=== PATIENT | female | born 1965 | race Caucasian/White ===

== ENCOUNTER 2025-03-18 06:37 | Observation (INO) | payer BC ==
[2025-03-18] VITALS (19 sets, daily range): BP systolic 124–195; BP diastolic 66–102
[~2025-03-18] VITALS: Ht 182.9 cm; Wt 120.5 kg
[2025-03-18] MEDS ORDERED: Ondansetron HCl 2 MG / ML 2ML Vial IV ONE (07:10)
[2025-03-18] MEDS ORDERED: Pantoprazole Sodium 40 MG Injection IV ONE (07:10)
[2025-03-18] MEDS ORDERED: FentaNYL Citrate 50 MCG/ML 2 ML Injection IV ONE (07:10)
[2025-03-18 07:13] LABS: BASOPHILS ABSOLUTE AUTO 0.06 K/mm3 (0.00-0.23); BASOPHILS PERCENT AUTO 0 % (0-2); EOSINOPHILS ABSOLUTE AUTO 0.14 K/mm3 (0.00-0.68); EOSINOPHILS PERCENT AUTO 1 % (0-6); Hematocrit 48.6 % (33.0-51.0); Hemoglobin 17.2 g/dL (11.5-16.0); IMMATURE GRAN ABSOLUTE AUTO 0.06 K/mm3 (0.00-0.10); IMMATURE GRAN PERCENT AUTO 0 % (0-1); LYMPHOCYTES ABSOLUTE AUTO 2.57 K/mm3 (0.84-5.20); LYMPHOCYTES PERCENT AUTO 17 % (21-46); MONOCYTES ABSOLUTE AUTO 0.78 K/mm3 (0.16-1.47); MONOCYTES PERCENT AUTO 5 % (4-13); Mean Corpuscular HGB Conc 35.4 g/dL (31.5-36.5); Mean Corpuscular Volume 85 fL (80-100); NEUTROPHILS ABSOLUTE AUTO 11.63 K/mm3 (1.96-9.15); NEUTROPHILS PERCENT AUTO 76 % (41-73); NRBC ABSOLUTE 0.00 K/mm3 (0.00-0.02); NRBC Auto 0.0 /100 WBC (0.0-0.2); Platelet Count 292 K/mm3 (150-400); RDW Coefficient Variation 12.4 % (11.7-14.2); RDW Standard Deviation 38.7 fL (35.1-46.3)
[2025-03-18 07:30] LABS: Alanine Aminotransfer (ALT/SGP 33.0 U/L (12-78); Albumin, Blood 4.3 g/dL (3.4-5.0); Albumin/Globulin Ratio 1.1 (0.8-1.8); Anion Gap 15.0 mmol/L (3-11); Aspartate Aminotrans (AST/SGOT 23.0 U/L (12-37); Bilirubin, Total 0.8 mg/dL (0.1-1.0); Blood Urea Nitrogen 24.0 mg/dL (8-24); CO2, Blood 21.0 mmol/L (21-32); Calcium, Blood 9.6 mg/dL (8.5-10.1); Chloride, Blood 105.0 mmol/L (98-108); Creatinine, Blood 0.65 mg/dL (0.40-1.00); Globulin, Blood 4.0 g/dL (2.2-4.0); Glucose, Blood 216.0 mg/dL (70-99); Potassium, Blood 3.5 mmol/L (3.5-5.5); Sodium, Blood 137.0 mmol/L (136-145); Total Protein, Blood 8.3 g/dL (6.4-8.2)
[2025-03-18] MEDS ORDERED: Sucralfate 1000MG / 10ML UD BTL PO ONE (08:20)
[2025-03-18] MEDS ORDERED: Prochlorperazine Edisylate 10 mg Vial IV ONE (08:20)
[2025-03-18] MEDS ORDERED: Piperacillin/Tazobactam Sod 3.375 GM in NS 100 ML IV ONE (10:15)
[2025-03-18] MEDS ORDERED: Rocuronium Bromide 10 MG/ML 5ML Injection IV ONE (10:38)
[2025-03-18] MEDS ORDERED: D5W-1/2NS 1,000 ML IV SCH (11:10)
[2025-03-18] MEDS ORDERED: Ondansetron HCl 2 MG / ML 2ML Vial IV PRN ×2 (11:10→15:40)
[2025-03-18] MEDS ORDERED: Bupivacaine 0.5% HCl 5 MG/ML 30MLVIAL ONE (12:10)
[2025-03-18] MEDS ORDERED: TRAM50 PO (12:31)
[2025-03-18] MEDS ORDERED: ROSUVASTATIN CA10 MG PO (12:32)
[2025-03-18] MEDS ORDERED: CLONIDINE HCL0.1 MG PO (12:32)
[2025-03-18] MEDS ORDERED: IBU800 M1 PO (12:32)
[2025-03-18] MEDS ORDERED: DULOXETINE HCL60 M1 PO (12:35)
[2025-03-18] MEDS ORDERED: ERGO50000 PO (12:35)
[2025-03-18] MEDS ORDERED: FentaNYL Citrate 50 MCG/ML 2 ML Injection ONE ×3 (12:48→15:40)
[2025-03-18] MEDS ORDERED: Ondansetron HCl 2 MG / ML 2ML Vial ONE (12:51)
[2025-03-18] MEDS ORDERED: Dexamethasone Sod Phos 10 MG/ML 1ML VIAL ONE (12:51)
[2025-03-18] MEDS ORDERED: Metoclopramide HCl 5MG / ML 2ML Vial ONE (12:57)
[2025-03-18] MEDS ORDERED: FentaNYL Citrate 50 MCG/ML 2 ML Injection IV PRN ×3 (13:00→15:35)
[2025-03-18] MEDS ORDERED: HYDROmorphone HCl/Pf 1MG SYR IV PRN ×2 (13:00)
[2025-03-18] MEDS ORDERED: ePHEDrine Sulfate 50 MG/ML 1ML Injection IV PRN (13:00)
[2025-03-18] MEDS ORDERED: Albuterol 2.5 MG/3 ML VIAL INH PRN (13:00)
[2025-03-18] MEDS ORDERED: Phenylephrine HCl 100 MCG/ML-NS 10MLSYR (1MG/10ML) ONE (13:02)
[2025-03-18] MEDS ORDERED: Labetalol HCL 5 MG/ML 4ML Injection (Single Dose) ONE ×2 (13:22→15:44)
[2025-03-18] MEDS ORDERED: Ketorolac Tromethamine 30mg Vial ONE (14:30)
[2025-03-18] MEDS ORDERED: Sugammadex Sodium 200 MG/2ML SDV (100 MG/ML) ONE (14:31)
[2025-03-18] MEDS ORDERED: HYDROcodone 5-APAP 325 TAB PO PRN (15:35)
[2025-03-18] MEDS ORDERED: FLU VACC TS2025-26(6MOS UP)/PF 45 MCG/0.5 ML SYRINGE IM SCH (15:40)
[2025-03-18] MEDS ORDERED: Ketorolac Tromethamine 15mg Vial IV PRN (15:40)
[2025-03-18] MEDS ORDERED: CLONIDINE ER 0.1 MG TAB PO SCH (21:00)
--- NOTE | 2025-03-19 04:14 | NUR ---
SHIFT SUMMARY PT IS POD 1 S/P LAP KERRY. A/OX4 WITH VSS, ON RA. ABD INCISIONS X 5 CDI, CLOSED WITH TISSUE ADHESIVE W/OUT DRAINAGE. NABEEL PO INTAKE, DENIES N/V. PAIN MANAGED PER EMAR. IV PATENT/SL. IS VOIDING AND PASSING FLATUS. AMBULATING IND OFTEN IN ROOM AND HALLWAYS, NABEEL WELL. PT PLEASANT AND COOPERATIVE WITH CARE. PLAN FOR POTENTIAL D/C TODAY. PT CURRENTLY RESTING IN BED WITH EYES CLOSED, RESP EVEN/UNLABORED WITH CALL LIGHT IN REACH. WILL MONITOR FOR CHANGES/CONCERNS AND GIVE REPORT TO ONCOMING RN.
[2025-03-19 05:20] VITALS: BP 136/72
[2025-03-19] MEDS ORDERED: DULoxetine HCL 60 MG Capsule DR PO SCH ×2 (05:25→09:00)
[2025-03-19 05:32] LABS: BASOPHILS ABSOLUTE AUTO 0.03 K/mm3 (0.00-0.23); BASOPHILS PERCENT AUTO 0 % (0-2); EOSINOPHILS ABSOLUTE AUTO 0.01 K/mm3 (0.00-0.68); EOSINOPHILS PERCENT AUTO 0 % (0-6); Hematocrit 39.2 % (33.0-51.0); Hemoglobin 13.3 g/dL (11.5-16.0); IMMATURE GRAN ABSOLUTE AUTO 0.11 K/mm3 (0.00-0.10); IMMATURE GRAN PERCENT AUTO 1 % (0-1); LYMPHOCYTES ABSOLUTE AUTO 1.48 K/mm3 (0.84-5.20); LYMPHOCYTES PERCENT AUTO 7 % (21-46); MONOCYTES ABSOLUTE AUTO 1.39 K/mm3 (0.16-1.47); MONOCYTES PERCENT AUTO 7 % (4-13); Mean Corpuscular HGB Conc 33.9 g/dL (31.5-36.5); NEUTROPHILS ABSOLUTE AUTO 17.05 K/mm3 (1.96-9.15); NEUTROPHILS PERCENT AUTO 85 % (41-73); NRBC ABSOLUTE 0.00 K/mm3 (0.00-0.02); NRBC Auto 0.0 /100 WBC (0.0-0.2); Platelet Count 217 K/mm3 (150-400); RDW Coefficient Variation 12.9 % (11.7-14.2); RDW Standard Deviation 42.3 fL (35.1-46.3)
[2025-03-19 05:44] LABS: Mean Corpuscular Volume 90 fL (80-100)
[2025-03-19 06:14] LABS: Alanine Aminotransfer (ALT/SGP 74.0 U/L (12-78); Albumin, Blood 3.3 g/dL (3.4-5.0); Albumin/Globulin Ratio 1.1 (0.8-1.8); Anion Gap 7.0 mmol/L (3-11); Aspartate Aminotrans (AST/SGOT 50.0 U/L (12-37); Bilirubin, Total 0.9 mg/dL (0.1-1.0); Blood Urea Nitrogen 24.0 mg/dL (8-24); CO2, Blood 28.0 mmol/L (21-32); Calcium, Blood 8.7 mg/dL (8.5-10.1); Chloride, Blood 106.0 mmol/L (98-108); Creatinine, Blood 0.79 mg/dL (0.40-1.00); Globulin, Blood 2.9 g/dL (2.2-4.0); Glucose, Blood 136.0 mg/dL (70-99); Potassium, Blood 4.0 mmol/L (3.5-5.5); Sodium, Blood 137.0 mmol/L (136-145); Total Protein, Blood 6.2 g/dL (6.4-8.2)
[2025-03-19 07:07] VITALS: BP 161/85
[2025-03-19 14:07] VITALS: BP 129/73
[2025-03-19] MEDS ORDERED: Norco 5-325 Ta1 EACH PO (14:25)
--- NOTE | 2025-03-19 16:13 | NUR ---
DC INSTRUCT REVIEWED. STATED UNDERSTANDING. PRINTED RX DISPENSED. IV DC'D INTACT. DC'D TO POV VIA W/C.
== END 2025-03-19 16:15 | disposition home or self-care (01) ==
LOC: ER 06:37 → SURS 06:38
PROVIDERS: Emergency Medicine; ADMIT Surgery
PROC: BF502Z0 Other Imaging of Bile Ducts using Fluorescing Agent, Intraoperative (ICD-10-PCS; principal; 2025-03-18 12:30)
PROC: 0FT44ZZ Resection of Gallbladder, Percutaneous Endoscopic Approach (ICD-10-PCS; principal; 2025-03-18 12:30)
DX: K80.10 Calculus of gallbladder with chronic cholecystitis without obstruction (principal); I10 Essential (primary) hypertension; E78.00 Pure hypercholesterolemia, unspecified; Z88.5 Allergy status to narcotic agent; Z88.8 Allergy status to other drugs, medicaments and biological substances
CPT/HCPCS: 36415; 71046; 74177; 74300; 76705; 80053; 83690; 84484; 85025; 88304; 93005; 93010; 96374-59; 96375; 99285-25; A9270; C1729; C1894; G0378; J0780; J1100; J1885; J2371; J2405; J2470; J2543; J2704; J2765; J3010; J7042; J7120; Q9967